=== PATIENT | male | born 1965 | race Caucasian/White ===

== ENCOUNTER 2016-11-02 21:33 | Emergency (ER) | payer OTHER ==
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
--- NOTE | 2016-11-07 08:57 | ED MAR SUMMARY ---
..... Medication Administration Record [facility] [address], [place] [id number] Patient: ALAN MCGARRY Visit ID: [id number] 51y, M Weight: 102.0 kg Height/Length: 70 in BMI: 32.3 ALLERGIES: No Known Drug Allergy
--- NOTE | 2016-11-07 08:57 | ED MED RECONCILIATION SUMMARY ---
Patient: ALAN MCGARRY Medication Reconciliation Report [facility] VisitID: [id number] [address] [place] [address] 51y, M Registration Date/Time: 11/02/2016 Weight: 102.0 kg Height/Length: 70 in. BMI: 32.3 ALLERGIES: No Known Drug Allergy The patient's Home Medications are listed below: NONE. The source(s) of the original Home Medication information: Not obtained. The following Medications were given to the patient in the Emergency Department: None. The following Medications were prescribed to the patient: None.
--- NOTE | 2016-11-07 08:57 | ED MED RECONCILIATION SUMMARY ---
Patient: ALAN MCGARRY Medication Reconciliation Report [facility] VisitID: [id number] [address] [place] [address] 51y, M Registration Date/Time: 11/02/2016 Weight: 102.0 kg Height/Length: 70 in. BMI: 32.3 ALLERGIES: No Known Drug Allergy The patient's Home Medications are listed below: NONE. The source(s) of the original Home Medication information: Not obtained. The following Medications were given to the patient in the Emergency Department: None. The following Medications were prescribed to the patient: None.
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
--- NOTE | 2016-11-07 08:57 | ED MAR SUMMARY ---
..... Medication Administration Record [facility] [address] [place], [place] [id number] Patient: ALAN MCGARRY Visit ID: [id number] 51y, M Weight: 102.0 kg Height/Length: 70 in BMI: 32.3 ALLERGIES: No Known Drug Allergy
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
== END 2016-11-02 21:53 ==
LOC: ED SRH 21:33
DX: Z04.1 Encounter for examination and observation following transport accident (principal)